=== PATIENT | male | born 1960 | race Caucasian/White ===

== ENCOUNTER 2021-12-16 14:30 | Inpatient (IN) | payer SELFPAY ==
[2021-12-16] MEDS ORDERED: Sodium Chloride 0.9% 2.5 ML Syringe FLUSH PRN (15:27)
[2021-12-16] MEDS ORDERED: Sodium Chloride 0.9% 10 ML Syringe FLUSH PRN (15:27)
[2021-12-16] MEDS ORDERED: Furosemide 40 MG/4 ML VIAL IVPUSH ONE (15:28)
[2021-12-16] MEDS ORDERED: Nitroglycerin 0.4 MG Tab.SL SL ONE (15:29)
[2021-12-16 16:19] LABS: CARBON DIOXIDE,CO2 32.4 mmol/L (21.0-32.0); POTASSIUM,K 4.1 mmol/L (3.5-5.1)
[2021-12-16 16:29] LABS: CORONAVIRUS COVID-19 NAA POSITIVE (NEGATIVE); INFLUENZA A NAA NEGATIVE (NEGATIVE); INFLUENZA B NAA NEGATIVE (NEGATIVE)
[2021-12-16] MEDS ORDERED: Aspirin 81 MG Tab.Chew PO ONE (16:31)
[2021-12-16] MEDS ORDERED: Dexamethasone 10 MG/ML SDV IVPUSH ONE (17:28)
[2021-12-16] MEDS ORDERED: REMDESIVIR 200 MG in Sodium Chloride 0.9% 250 ML IV ONE ×2 (17:28→17:45)
[2021-12-16] MEDS ORDERED: Enoxaparin 100 MG/1 ML Syringe SUBCUT ONE (18:24)
[2021-12-17 06:26] LABS: BLOOD UREA NITROGEN,BUN 41 mg/dL (7.0-18.0); CARBON DIOXIDE,CO2 31.9 mmol/L (21.0-32.0); CHLORIDE,CL 96 mmol/L (98-107); GLUCOSE RANDOM 116 mg/dL (74-106); POTASSIUM,K 4.2 mmol/L (3.5-5.1); SODIUM,NA 135 mmol/L (136-148)
[2021-12-17] MEDS: Dexamethasone 4 MG Tab PO SCH (08:04)
[2021-12-17] MEDS ORDERED: Iopamidol 755 MG/ML 500 ML Multipack Bottle IVPUSH STA (10:23)
[2021-12-17] MEDS ORDERED: Azithromycin 500 MG Vial IV SCH (12:15)
[2021-12-17] MEDS: Cefepime 1 GM in Premix Bag 1 BAG IV SCH ×2 (12:24→19:02)
[2021-12-17] MEDS: Azithromycin 500 MG in Sodium Chloride 0.9% 250 ML IV SCH (12:44)
[2021-12-17] MEDS: REMDESIVIR 100 MG in Sodium Chloride 0.9% 100 ML IV SCH (16:26)
[2021-12-17] MEDS: Enoxaparin 40 MG/0.4 ML Syringe SUBCUT SCH (16:26)
[2021-12-17] MEDS ORDERED: Enoxaparin 40 MG/0.4 ML Syringe SUBCUT SCH (17:00)
[2021-12-17] MEDS: Albuterol/Ipratropium 3.0-0.5 MG/3 ML Neb Soln NEB PRN (23:50)
[2021-12-18] MEDS: Cefepime 1 GM in Premix Bag 1 BAG IV SCH (03:52)
[2021-12-18] MEDS: Albuterol/Ipratropium 3.0-0.5 MG/3 ML Neb Soln NEB PRN ×4 (03:52→20:35)
[2021-12-18 06:11] LABS: BLOOD UREA NITROGEN,BUN 34 mg/dL (7.0-18.0); CARBON DIOXIDE,CO2 36.7 mmol/L (21.0-32.0); CHLORIDE,CL 100 mmol/L (98-107); GLUCOSE RANDOM 105 mg/dL (74-106); POTASSIUM,K 3.9 mmol/L (3.5-5.1); SODIUM,NA 141 mmol/L (136-148)
[2021-12-18] MEDS: Dexamethasone 4 MG Tab PO SCH (08:01)
[2021-12-18] MEDS: Enoxaparin 40 MG/0.4 ML Syringe SUBCUT SCH ×2 (08:01→20:35)
[2021-12-18] MEDS: Cefepime 2 GM in Sodium Chloride 0.9% 50 ML IV SCH ×2 (11:34→20:36)
[2021-12-18] MEDS: Azithromycin 500 MG in Sodium Chloride 0.9% 250 ML IV SCH (12:03)
[2021-12-18] MEDS: Furosemide 20 MG Tab PO SCH (13:23)
[2021-12-18] MEDS: REMDESIVIR 100 MG in Sodium Chloride 0.9% 100 ML IV SCH (16:11)
[2021-12-19] MEDS: Albuterol/Ipratropium 3.0-0.5 MG/3 ML Neb Soln NEB PRN ×5 (00:25→20:15)
[2021-12-19] MEDS: Cefepime 2 GM in Sodium Chloride 0.9% 50 ML IV SCH ×3 (04:33→20:15)
[2021-12-19] MEDS ORDERED: Sodium Chloride 0.65% Nasal Spray 45 ML Bottle NAS PRN (05:34)
[2021-12-19 06:24] LABS: BLOOD UREA NITROGEN,BUN 24 mg/dL (7.0-18.0); CARBON DIOXIDE,CO2 31.8 mmol/L (21.0-32.0); CHLORIDE,CL 100 mmol/L (98-107); GLUCOSE RANDOM 97 mg/dL (74-106); POTASSIUM,K 3.8 mmol/L (3.5-5.1); SODIUM,NA 140 mmol/L (136-148)
[2021-12-19] MEDS: Enoxaparin 40 MG/0.4 ML Syringe SUBCUT SCH ×2 (07:59→20:15)
[2021-12-19] MEDS: Dexamethasone 4 MG Tab PO SCH (08:00)
[2021-12-19] MEDS: Furosemide 20 MG Tab PO SCH (08:01)
[2021-12-19] MEDS: guaiFENesin/Dextromethorphan 100-10 MG/5 ML Soln 10 ML Cup PO PRN ×3 (08:02→20:15)
[2021-12-19] MEDS ORDERED: Furosemide 20 MG Tab PO SCH (09:00)
[2021-12-19] MEDS: Azithromycin 500 MG in Sodium Chloride 0.9% 250 ML IV SCH (12:57)
[2021-12-19] MEDS: REMDESIVIR 100 MG in Sodium Chloride 0.9% 100 ML IV SCH (16:01)
[2021-12-20] MEDS: Albuterol/Ipratropium 3.0-0.5 MG/3 ML Neb Soln NEB PRN ×6 (00:23→20:58)
[2021-12-20] MEDS: guaiFENesin/Dextromethorphan 100-10 MG/5 ML Soln 10 ML Cup PO PRN ×5 (00:24→20:58)
[2021-12-20] MEDS: Cefepime 2 GM in Sodium Chloride 0.9% 50 ML IV SCH ×3 (04:16→20:58)
[2021-12-20 07:15] LABS: BLOOD UREA NITROGEN,BUN 21 mg/dL (7.0-18.0); CARBON DIOXIDE,CO2 32.2 mmol/L (21.0-32.0); CHLORIDE,CL 103 mmol/L (98-107); GLUCOSE RANDOM 102 mg/dL (74-106); POTASSIUM,K 3.8 mmol/L (3.5-5.1); SODIUM,NA 141 mmol/L (136-148)
[2021-12-20] MEDS: Furosemide 20 MG Tab PO SCH (08:04)
[2021-12-20] MEDS: Enoxaparin 40 MG/0.4 ML Syringe SUBCUT SCH ×2 (08:05→20:58)
[2021-12-20] MEDS: Dexamethasone 4 MG Tab PO SCH (08:05)
[2021-12-20] MEDS ORDERED: Furosemide 20 MG/2 ML VIAL IVPUSH ONE (08:19)
[2021-12-20] MEDS: Benzonatate 100 MG Cap PO PRN (09:44)
[2021-12-20] MEDS: Azithromycin 500 MG in Sodium Chloride 0.9% 250 ML IV SCH (11:34)
[2021-12-20] MEDS: REMDESIVIR 100 MG in Sodium Chloride 0.9% 100 ML IV SCH (16:04)
[2021-12-20] MEDS ORDERED: Hydrocolloid Dressing 4x4 Bandage TOP ONE (16:36)
[2021-12-21] MEDS: Cefepime 2 GM in Sodium Chloride 0.9% 50 ML IV SCH ×3 (03:14→20:24)
[2021-12-21] MEDS: Albuterol/Ipratropium 3.0-0.5 MG/3 ML Neb Soln NEB PRN ×4 (06:30→20:23)
[2021-12-21] MEDS: guaiFENesin/Dextromethorphan 100-10 MG/5 ML Soln 10 ML Cup PO PRN ×3 (06:30→21:54)
[2021-12-21 06:44] LABS: BLOOD UREA NITROGEN,BUN 24 mg/dL (7.0-18.0); CARBON DIOXIDE,CO2 32.5 mmol/L (21.0-32.0); CHLORIDE,CL 105 mmol/L (98-107); GLUCOSE RANDOM 100 mg/dL (74-106); POTASSIUM,K 4.8 mmol/L (3.5-5.1); SODIUM,NA 143 mmol/L (136-148)
[2021-12-21] MEDS: Dexamethasone 4 MG Tab PO SCH (08:19)
[2021-12-21] MEDS ORDERED: Furosemide 20 MG/2 ML VIAL IVPUSH ONE (08:19)
[2021-12-21] MEDS: Furosemide 20 MG Tab PO SCH (08:20)
[2021-12-21] MEDS: Enoxaparin 40 MG/0.4 ML Syringe SUBCUT SCH ×2 (08:20→20:24)
[2021-12-21] MEDS: Benzonatate 100 MG Cap PO PRN ×2 (08:20→20:23)
[2021-12-21] MEDS: Losartan 50 MG Tab PO SCH (09:42)
[2021-12-21] MEDS: Azithromycin 500 MG in Sodium Chloride 0.9% 250 ML IV SCH (11:30)
[2021-12-22] MEDS: Cefepime 2 GM in Sodium Chloride 0.9% 50 ML IV SCH ×3 (04:13→20:14)
[2021-12-22] MEDS: Benzonatate 100 MG Cap PO PRN ×2 (06:12→22:03)
[2021-12-22] MEDS: guaiFENesin/Dextromethorphan 100-10 MG/5 ML Soln 10 ML Cup PO PRN ×2 (06:12→20:11)
[2021-12-22] MEDS: Albuterol/Ipratropium 3.0-0.5 MG/3 ML Neb Soln NEB PRN ×4 (06:12→22:03)
[2021-12-22 06:56] LABS: BLOOD UREA NITROGEN,BUN 23 mg/dL (7.0-18.0); CHLORIDE,CL 101 mmol/L (98-107); GLUCOSE RANDOM 100 mg/dL (74-106); POTASSIUM,K 5.8 mmol/L (3.5-5.1); SODIUM,NA 136 mmol/L (136-148)
[2021-12-22] MEDS: Furosemide 20 MG Tab PO SCH (08:00)
[2021-12-22] MEDS: Enoxaparin 40 MG/0.4 ML Syringe SUBCUT SCH ×2 (08:00→20:12)
[2021-12-22] MEDS: Losartan 50 MG Tab PO SCH (08:01)
[2021-12-22] MEDS: Dexamethasone 4 MG Tab PO SCH (08:01)
[2021-12-22] MEDS: Azithromycin 500 MG in Sodium Chloride 0.9% 250 ML IV SCH (11:35)
[2021-12-22 15:43] LABS: BLOOD UREA NITROGEN,BUN 29 mg/dL (7.0-18.0); CARBON DIOXIDE,CO2 30.6 mmol/L (21.0-32.0); CHLORIDE,CL 97 mmol/L (98-107); GLUCOSE RANDOM 217 mg/dL (74-106); POTASSIUM,K 5.1 mmol/L (3.5-5.1); SODIUM,NA 134 mmol/L (136-148)
[2021-12-23] MEDS: Albuterol/Ipratropium 3.0-0.5 MG/3 ML Neb Soln NEB PRN ×3 (02:14→20:37)
[2021-12-23] MEDS: Cefepime 2 GM in Sodium Chloride 0.9% 50 ML IV SCH ×3 (04:00→20:37)
[2021-12-23] MEDS: Docusate Sodium 100 MG Cap PO PRN (06:03)
[2021-12-23] MEDS: Benzonatate 100 MG Cap PO PRN (06:03)
[2021-12-23] MEDS: guaiFENesin/Dextromethorphan 100-10 MG/5 ML Soln 10 ML Cup PO PRN ×3 (06:03→20:37)
[2021-12-23 06:55] LABS: BLOOD UREA NITROGEN,BUN 26 mg/dL (7.0-18.0); CARBON DIOXIDE,CO2 30.6 mmol/L (21.0-32.0); CHLORIDE,CL 100 mmol/L (98-107); GLUCOSE RANDOM 106 mg/dL (74-106); SODIUM,NA 136 mmol/L (136-148)
[2021-12-23] MEDS: Dexamethasone 4 MG Tab PO SCH (08:11)
[2021-12-23] MEDS: Furosemide 20 MG Tab PO SCH (08:11)
[2021-12-23] MEDS: Enoxaparin 40 MG/0.4 ML Syringe SUBCUT SCH ×2 (08:12→20:37)
[2021-12-23] MEDS: Azithromycin 500 MG in Sodium Chloride 0.9% 250 ML IV SCH (12:27)
[2021-12-24] MEDS: Albuterol/Ipratropium 3.0-0.5 MG/3 ML Neb Soln NEB PRN ×4 (00:40→20:26)
[2021-12-24] MEDS: Benzonatate 100 MG Cap PO PRN ×3 (06:15→22:31)
[2021-12-24] MEDS: guaiFENesin/Dextromethorphan 100-10 MG/5 ML Soln 10 ML Cup PO PRN ×3 (06:15→20:26)
[2021-12-24 06:28] LABS: BLOOD UREA NITROGEN,BUN 23 mg/dL (7.0-18.0); CARBON DIOXIDE,CO2 30.3 mmol/L (21.0-32.0); CHLORIDE,CL 102 mmol/L (98-107); GLUCOSE RANDOM 106 mg/dL (74-106); POTASSIUM,K 4.8 mmol/L (3.5-5.1); SODIUM,NA 136 mmol/L (136-148)
[2021-12-24] MEDS: Dexamethasone 4 MG Tab PO SCH (08:02)
[2021-12-24] MEDS: Furosemide 20 MG Tab PO SCH (08:02)
[2021-12-24] MEDS: Enoxaparin 40 MG/0.4 ML Syringe SUBCUT SCH ×2 (08:02→20:27)
[2021-12-25] MEDS: Albuterol/Ipratropium 3.0-0.5 MG/3 ML Neb Soln NEB PRN ×3 (05:24→19:59)
[2021-12-25] MEDS: guaiFENesin/Dextromethorphan 100-10 MG/5 ML Soln 10 ML Cup PO PRN ×4 (05:58→19:59)
[2021-12-25] MEDS: Benzonatate 100 MG Cap PO PRN ×3 (05:58→22:06)
[2021-12-25 07:12] LABS: BLOOD UREA NITROGEN,BUN 20 mg/dL (7.0-18.0); CARBON DIOXIDE,CO2 30.7 mmol/L (21.0-32.0); CHLORIDE,CL 101 mmol/L (98-107); GLUCOSE RANDOM 99 mg/dL (74-106); POTASSIUM,K 4.4 mmol/L (3.5-5.1); SODIUM,NA 137 mmol/L (136-148)
[2021-12-25] MEDS: Dexamethasone 4 MG Tab PO SCH (08:03)
[2021-12-25] MEDS: Losartan 50 MG Tab PO SCH (08:03)
[2021-12-25] MEDS: Furosemide 20 MG Tab PO SCH (08:03)
[2021-12-25] MEDS: Enoxaparin 40 MG/0.4 ML Syringe SUBCUT SCH ×2 (08:17→19:59)
[2021-12-26] MEDS: Albuterol/Ipratropium 3.0-0.5 MG/3 ML Neb Soln NEB PRN (05:51)
[2021-12-26] MEDS: Docusate Sodium 100 MG Cap PO PRN (05:51)
[2021-12-26] MEDS: guaiFENesin/Dextromethorphan 100-10 MG/5 ML Soln 10 ML Cup PO PRN ×3 (05:51→21:58)
[2021-12-26 06:42] LABS: BLOOD UREA NITROGEN,BUN 21 mg/dL (7.0-18.0); CARBON DIOXIDE,CO2 30.7 mmol/L (21.0-32.0); CHLORIDE,CL 102 mmol/L (98-107); GLUCOSE RANDOM 96 mg/dL (74-106); POTASSIUM,K 4.9 mmol/L (3.5-5.1); SODIUM,NA 136 mmol/L (136-148)
[2021-12-26] MEDS: Furosemide 20 MG Tab PO SCH (08:00)
[2021-12-26] MEDS: Losartan 50 MG Tab PO SCH (08:00)
[2021-12-26] MEDS: Enoxaparin 40 MG/0.4 ML Syringe SUBCUT SCH ×2 (08:00→21:57)
[2021-12-26] MEDS ORDERED: Dexamethasone 4 MG Tab PO ONE (09:00)
[2021-12-26] MEDS: Benzonatate 100 MG Cap PO PRN (21:58)
[2021-12-27 06:11] LABS: BLOOD UREA NITROGEN,BUN 23 mg/dL (7.0-18.0); CARBON DIOXIDE,CO2 29.8 mmol/L (21.0-32.0); CHLORIDE,CL 101 mmol/L (98-107); GLUCOSE RANDOM 74 mg/dL (74-106); POTASSIUM,K 4.8 mmol/L (3.5-5.1); SODIUM,NA 137 mmol/L (136-148)
[2021-12-27] MEDS: Losartan 50 MG Tab PO SCH (09:06)
[2021-12-27] MEDS: Furosemide 20 MG Tab PO SCH (09:06)
[2021-12-27] MEDS: Enoxaparin 40 MG/0.4 ML Syringe SUBCUT SCH (09:06)
[2021-12-27] MEDS: guaiFENesin/Dextromethorphan 100-10 MG/5 ML Soln 10 ML Cup PO PRN (09:07)
== END 2021-12-27 16:40 | disposition home or self-care (01) | DRG 177 ==
LOC: MW.ED 14:30 → MW.ICU 20:31 → MW.MS 12-26 10:53
PROVIDERS: ADMIT Internal Medicine; ATTEND Internal Medicine
PROC: 8E0ZXY6 Isolation (ICD-10-PCS; principal; 2021-12-16)
PROC: XW033E5 Introduction of Remdesivir Anti-infective into Peripheral Vein, Percutaneous Approach, New Technology Group 5 (ICD-10-PCS; 2021-12-16)
PROC: 3E0333Z Introduction of Anti-inflammatory into Peripheral Vein, Percutaneous Approach (ICD-10-PCS; 2021-12-16)
PROC: 5A09557 Assistance with Respiratory Ventilation, Greater than 96 Consecutive Hours, Continuous Positive Airway Pressure (ICD-10-PCS; 2021-12-16)
PROC: 3E0DX3Z Introduction of Anti-inflammatory into Mouth and Pharynx, External Approach (ICD-10-PCS; 2021-12-17)
PROC: XW0DXM6 Introduction of Baricitinib into Mouth and Pharynx, External Approach, New Technology Group 6 (ICD-10-PCS; 2021-12-17)
PROC: 5A0955A Assistance with Respiratory Ventilation, Greater than 96 Consecutive Hours, High Flow/Velocity Cannula (ICD-10-PCS; 2021-12-17)
DX: U07.1 COVID-19 (principal); J12.82 Pneumonia due to coronavirus disease 2019; J96.01 Acute respiratory failure with hypoxia; J12.81 Pneumonia due to SARS-associated coronavirus; I42.9 Cardiomyopathy, unspecified; T17.990A Other foreign object in respiratory tract, part unspecified in causing asphyxiation, initial encounter; I11.0 Hypertensive heart disease with heart failure; I50.9 Heart failure, unspecified; Z95.0 Presence of cardiac pacemaker; Z88.0 Allergy status to penicillin; Z79.899 Other long term (current) drug therapy
CPT/HCPCS: 0240U; 36415; 36600; 51702; 71045; 71045-26; 71275; 71275-26; 80048; 80053; 81001; 82803; 82947; 83605; 83735; 83880; 84100; 84145; 84484; 85025; 85027; 85379; 85610; 85730; 86140; 87040; 93005; 93010; 93306; 94640; 94660; 94667; 94668; 96365; 96366; 96372; 96375; 97110-GP; 97161-GP; 99285-25; 99291; A9270-GY; J0248; J0456; J0692; J1100; J1650; J1940; J7050; J7620-GY; J8540; Q9967